=== PATIENT | female | born 1935 | race Asian ===

== ENCOUNTER 2016-10-08 12:37 | Inpatient (IN) | payer MEDICARE, MEDICAID ==
[~2016-10-08] VITALS: Ht 154.9 cm; Wt 45.4 kg
[~2016-10-08 12:37] MED LIST: AMLO1TAB39 PO; ANTACID ANTI GAS PO; CLON0.5T4 PO; DICL100G3 TP; DICY20TA11 PO; DONE10TA44 PO; ESOM40CA PO; GABA-534 PO; GLIP5TAB13 PO; LINA5TAB PO; MEGE400O PO; METF500T4 PO; METO25TA PO; P EP PO; RALO60TA PO; ROSU10TA PO; TOBR3.5O2 OP; TRAM50TA2 PO; TRIA15OI2 TP; VENL75TA4 PO; ZOLP10TA6 PO
[2016-10-08] MEDS ORDERED: LIDOCAINE 1%-EPI 1:100,000 50 ML VIAL IJ ONE (13:00)
[2016-10-08] MEDS ORDERED: IV NS 0.9% 500 ML BAG IV ONE (13:00)
[2016-10-08] MEDS ORDERED: IV SET PRIMARY 1 EA INFUS.SET MC ONE (13:13)
[2016-10-08] MEDS ORDERED: IV NS 0.9% 500 ML IV ONE (13:13)
[2016-10-08] MEDS ORDERED: IV SET PRIMARY PUMP SET 1 EA INFUS.SET MC ONE ×2 (13:43→21:45)
[2016-10-08 13:48] LABS: BASOPHILS # (AUTO) 0.3 /CMM (0.0-0.2); BASOPHILS % (AUTO) 1.5 % (0.0-2.0); DIFF TOTAL % 100 %; EOSINOPHILS # (AUTO) 0.1 /CMM (0.0-0.7); EOSINOPHILS % (AUTO) 0.5 % (0.0-6.0); HEMATOCRIT 30 % (33-45); HEMOGLOBIN 10.4 g/dL (11.5-14.8); LYMPHOCYTES # (AUTO) 1.7 /CMM (0.8-4.8); LYMPHOCYTES % (AUTO) 9.2 % (20.0-44.0); MEAN CORPUSCULAR HEMOGLOBIN 32 PG (26.0-33.0); MEAN CORPUSCULAR HGB CONC 35 g/dl (31.0-36.0); MEAN CORPUSCULAR VOLUME 91 fL (82-100); MONOCYTES # (AUTO) 1.1 /CMM (0.1-1.30); MONOCYTES % (AUTO) 6.1 % (2.0-12.0); NEUTROPHILS # (AUTO) 14.8 /CMM (1.8-8.9); NEUTROPHILS % (AUTO) 82.7 % (43.0-81.0); PLATELET COUNT (AUTO) 538 /CMM (150-450); RED BLOOD CELL COUNT(AUTO) 3.27 MIL/uL (4.0-5.2)
[2016-10-08 14:00] LABS: INR 0.93 (0.87-1.13); PROTHROMBIN TIME 9.8 SECS (9.5-12.7)
[2016-10-08 14:02] LABS: ALANINE AMINOTRANSFERASE 54 U/L (12-78); ALBUMIN 3.3 g/dL (3.4-5.0); ANION GAP 14 (5-14); ASPARTATE AMINOTRANSFERASE 44 U/L (15-37); BILIRUBIN,DIRECT 0.1 mg/dL (0.0-0.2); BILIRUBIN,TOTAL 0.5 mg/dL (0.2-1.0); CALCIUM, SERUM 8.8 mg/dL (8.5-10.1); CARBON DIOXIDE 24 mmol/L (21-32); CHLORIDE 96 mmol/L (98-107); CREATININE 1.2 mg/dL (0.6-1.3); GLUCOSE 234 mg/dL (74-106); INDIRECT BILIRUBIN 0.4 mg/dL (0.0-1.1); POTASSIUM 4.1 mmol/L (3.5-5.1); SODIUM SERUM 130 mmol/L (136-145); TOTAL PROTEIN, SERUM 7.9 g/dL (6.4-8.2); UREA NITROGEN, BLOOD 23 mg/dL (7-18)
[2016-10-08 14:04] LABS: TROPONIN I < 0.017 ng/mL (0.00-0.056)
[2016-10-08 14:40] VITALS: BP 131/75
[2016-10-08] MEDS ORDERED: ONDANSETRON HCL/PF 4 MG/2 ML VIAL IVP PRN (16:30)
[2016-10-08] MEDS ORDERED: ACETAMINOPHEN 325 MG TABLET PO PRN (16:30)
[2016-10-08] MEDS: METFORMIN 500 MG TABLET PO SCH (17:00)
[2016-10-08] MEDS: AZITHROMYCIN 500 MG in IV D5W 250 ML IV SCH (17:00)
[2016-10-08] MEDS: GABAPENTIN 300 MG CAPSULE PO SCH (17:00)
[2016-10-08] MEDS: MEGESTROL ACETATE SUSP 400 MG/10 ML UDC PO SCH (17:00)
[2016-10-08] MEDS ORDERED: CLOTRIMAZOLE 1% 15 GM TUBE TP SCH (17:00)
[2016-10-08] MEDS: TRAMADOL HCL 50 MG TABLET PO SCH (17:00)
[2016-10-08] MEDS ORDERED: QUETIAPINE FUMARATE 25 MG TABLET PO STA (17:28)
[2016-10-08] MEDS: CEFTRIAXONE 1 G in IV D5W 50 ML IV SCH (18:00)
[2016-10-08 20:00] VITALS: BP 107/58
[2016-10-08] MEDS ORDERED: GUAIFENESIN/CODEINE 10 ML UDC PO PRN (21:00)
[2016-10-08] MEDS ORDERED: HYDROCODONE/APAP 5/325MG 1 EACH TABLET PO PRN (21:00)
[2016-10-08] MEDS ORDERED: ZOLPIDEM TARTRATE 10 MG TABLET ONE (21:20)
[2016-10-08] MEDS ORDERED: GUAIFENESIN/CODEINE 10 ML UDC ONE (21:21)
[2016-10-08] MEDS: IV NS 0.9% 1,000 ML IV PRN (21:50)
[2016-10-08] MEDS ORDERED: DONEPEZIL 5 MG TABLET PO SCH (22:00)
[2016-10-08] MEDS ORDERED: ATORVASTATIN 10 MG TABLET PO SCH (22:00)
[2016-10-08] MEDS ORDERED: ZOLPIDEM TARTRATE 10 MG TABLET PO SCH (22:00)
[2016-10-09] VITALS: BP 110/69
[2016-10-09 07:20] LABS: BASOPHILS % (AUTO) 0.2 % (0.0-2.0); DIFF TOTAL % 100 %; EOSINOPHILS # (AUTO) 0.1 /CMM (0.0-0.7); HEMATOCRIT 27 % (33-45); HEMOGLOBIN 9.2 g/dL (11.5-14.8); LYMPHOCYTES # (AUTO) 1.3 /CMM (0.8-4.8); LYMPHOCYTES % (AUTO) 10.6 % (20.0-44.0); MEAN CORPUSCULAR HEMOGLOBIN 32 PG (26.0-33.0); MEAN CORPUSCULAR HGB CONC 34 g/dl (31.0-36.0); MEAN CORPUSCULAR VOLUME 92 fL (82-100); MONOCYTES # (AUTO) 0.9 /CMM (0.1-1.30); MONOCYTES % (AUTO) 7.1 % (2.0-12.0); NEUTROPHILS # (AUTO) 9.7 /CMM (1.8-8.9); NEUTROPHILS % (AUTO) 81.1 % (43.0-81.0); PLATELET COUNT (AUTO) 500 /CMM (150-450); RED BLOOD CELL COUNT(AUTO) 2.92 MIL/uL (4.0-5.2); WHITE BLOOD COUNT (AUTO) 11.9 K/uL (4.3-11.0)
[2016-10-09 07:42] LABS: ALBUMIN 2.9 g/dL (3.4-5.0); BILIRUBIN,TOTAL 0.4 mg/dL (0.2-1.0); CALCIUM, SERUM 8.2 mg/dL (8.5-10.1); CREATININE 1.1 mg/dL (0.6-1.3); PHOSPHORUS 3.1 mg/dL (2.5-4.9); POTASSIUM 3.9 mmol/L (3.5-5.1); TOTAL PROTEIN, SERUM 7.2 g/dL (6.4-8.2)
[2016-10-09 07:48] LABS: THYROID STIMULATING HORMONE 1.263 uIU/mL (0.358-3.74)
[2016-10-09 07:55] VITALS: BP 110/65
[2016-10-09 08:00] VITALS: BP 104/65
[2016-10-09] MEDS ORDERED: RALOXIFENE 60 MG TABLET PO SCH (09:00)
[2016-10-09] MEDS ORDERED: FLUCONAZOLE (100 MG) 100 MG TABLET PO SCH (09:00)
[2016-10-09] MEDS ORDERED: VENLAFAXINE 37.5 MG TABLET PO SCH (09:00)
[2016-10-09] MEDS ORDERED: clonazePAM 0.5 MG TABLET PO SCH (09:00)
[2016-10-09] MEDS ORDERED: TOBRAMYCIN/DEXAMETH OPHTH OINT 3.5 GM TUBE OP SCH (09:00)
[2016-10-09] MEDS ORDERED: SITAGLIPTIN PHOSPHATE 50 MG TABLET PO SCH ×2 (09:00)
[2016-10-09] MEDS ORDERED: VALSARTAN 40 MG TABLET PO SCH (09:00)
[2016-10-09] MEDS ORDERED: AMLODIPINE BESYLATE 5 MG TABLET PO SCH (09:00)
[2016-10-09] MEDS ORDERED: TRIAMCINOLONE OINT 0.1% 15 GM TUBE TP SCH (09:00)
[2016-10-09] MEDS ORDERED: ZOLPIDEM TARTRATE 10 MG TABLET PO SCH (09:00)
[2016-10-09] MEDS ORDERED: glipiZIDE 5 MG TABLET PO SCH (09:00)
[2016-10-09] MEDS ORDERED: METOPROLOL SUCCINATE 25 MG TAB.SR.24H PO SCH (09:00)
[2016-10-09] MEDS: METFORMIN 500 MG TABLET PO SCH ×2 (09:11→17:08)
[2016-10-09] MEDS: MEGESTROL ACETATE SUSP 400 MG/10 ML UDC PO SCH ×2 (09:11→17:08)
[2016-10-09] MEDS: GABAPENTIN 300 MG CAPSULE PO SCH ×3 (09:11→17:08)
[2016-10-09] MEDS: TRAMADOL HCL 50 MG TABLET PO SCH ×2 (09:15→17:00)
[2016-10-09 11:31] VITALS: BP 125/68
[2016-10-09 12:00] VITALS: BP 125/68
[2016-10-09] MEDS ORDERED: SOD FERRIC GLUC 125 MG in IV NS 0.9% 100 ML IV SCH (14:00)
[2016-10-09] MEDS ORDERED: SECONDARY IV SET 1 EA INFUS.SET MC ONE (14:23)
[2016-10-09] MEDS: IV NS 0.9% 1,000 ML IV PRN (14:28)
[2016-10-09 16:00] VITALS: BP_SYST 86; BP_SYST 94; BP_DIAS 44; BP_DIAS 49
[2016-10-09] MEDS: AZITHROMYCIN 500 MG in IV D5W 250 ML IV SCH (17:05)
[2016-10-09] MEDS: CEFTRIAXONE 1 G in IV D5W 50 ML IV SCH (17:48)
== END 2016-10-09 19:45 | disposition left against medical advice (07) | DRG 682 ==
LOC: ER 12:46 → TELE 13:03
PROVIDERS: ADMIT Nurse Practitioner Acute Care; ATTEND Nurse Practitioner Acute Care
DX: N17.0 Acute kidney failure with tubular necrosis (principal); G92 Toxic encephalopathy; E44.0 Moderate protein-calorie malnutrition; E87.1 Hypo-osmolality and hyponatremia; N39.0 Urinary tract infection, site not specified; Z68.1 Body mass index [BMI] 19.9 or less, adult; R55 Syncope and collapse; D47.3 Essential (hemorrhagic) thrombocythemia; D64.9 Anemia, unspecified; E86.0 Dehydration; F03.90 Unspecified dementia, unspecified severity, without behavioral disturbance, psychotic disturbance, mood disturbance, and anxiety; F32.9 Major depressive disorder, single episode, unspecified; I10 Essential (primary) hypertension; J20.9 Acute bronchitis, unspecified; K21.9 Gastro-esophageal reflux disease without esophagitis; M19.90 Unspecified osteoarthritis, unspecified site; M62.50 Muscle wasting and atrophy, not elsewhere classified, unspecified site; S01.01XA Laceration without foreign body of scalp, initial encounter; X58.XXXA Exposure to other specified factors, initial encounter; Y93.9 Activity, unspecified; Y92.009 Unspecified place in unspecified non-institutional (private) residence as the place of occurrence of the external cause; D72.829 Elevated white blood cell count, unspecified; E11.65 Type 2 diabetes mellitus with hyperglycemia; D50.9 Iron deficiency anemia, unspecified; E88.89 Other specified metabolic disorders; I51.7 Cardiomegaly
CPT/HCPCS: 36415; 70450-TC; 71010-TC; 80048-TC; 80053-TC; 80061-TC; 80076-TC; 82962-TC; 83540-TC; 83735-TC; 84100-TC; 84443-TC; 84484-TC; 85025-TC; 85730-TC; 87081-TC; 87400; 93307-TC; A4606; G6040-TC; J0456; J0696; J2405; J2916; J3490; J7030; J7040; J7060; Z7610

== ENCOUNTER 2016-12-17 22:01 | Emergency (ER) | payer MEDICARE, MEDICAID ==
[~2016-12-17] VITALS: Ht 157.5 cm; Wt 59.0 kg
[~2016-12-17 22:01] MED LIST changes: +METO-302 PO; -METO25TA PO
[2016-12-17 22:12] VITALS: BP 113/72
--- NOTE | 2016-12-17 22:15 | NUR ---
To bed 1 an 81 yo female bibra. Per ems patient was complaining of stomach ache and when they tried to help her stand up, patient seen unsteady. SBP laying down was 120 and standing is 97. Patient is aaox2, no s/s of acute distress. Breathing even and unlabored. Patient appears anxious and saying I want to go home, I am not in pain. [employer] speaking staff for translation at bedside with Dr Kong for eval, however patient refused to answer questions at this time. Safety maintained. Will monitor.
--- NOTE | 2016-12-17 22:20 | NUR ---
CALLED DAUGHTER AT [phone], PER DAUGHTER, PT HAS A HX OF DEMENTIA, DAUGHTER LEFT HOUSE WHEN EVENT HAPPENED. PT DAUGHTER WILL BE HERE IN 20 MIN
== END 2016-12-17 22:50 | disposition left against medical advice (07) ==
LOC: ER 22:04
DX: F03.90 Unspecified dementia, unspecified severity, without behavioral disturbance, psychotic disturbance, mood disturbance, and anxiety (principal); K21.9 Gastro-esophageal reflux disease without esophagitis; E11.9 Type 2 diabetes mellitus without complications
CPT/HCPCS: 99283; A4606; Z7610

== ENCOUNTER 2017-07-03 16:17 | Emergency (ER) | payer MEDICARE, MEDICAID ==
[~2017-07-03] VITALS: Ht 165.1 cm; Wt 54.4 kg
--- NOTE | 2017-07-03 16:55 | NUR ---
DR. PRUETT AT BEDSIDE SPEAKING WITH DAUGHTER. DAUGHTER WISHES TO LEAVE AGAINST MEDICAL ADVICE. PT FAMILY SIGNED AMA FORM
[2017-07-03 16:56] LABS: BASOPHILS # (AUTO) 0.1 /CMM (0.0-0.2); EOSINOPHILS # (AUTO) 0.1 /CMM (0.0-0.7); LYMPHOCYTES # (AUTO) 1.5 /CMM (0.8-4.8); MONOCYTES # (AUTO) 0.6 /CMM (0.1-1.30)
--- NOTE | 2017-07-03 16:56 | NUR ---
[facility] AT BEDSIDE TO SPEAK WITH FAMILY AND PATIENT
[2017-07-03 16:58] LABS: BASOPHILS % (AUTO) 1.2 % (0.0-2.0); EOSINOPHILS % (AUTO) 1.8 % (0.0-6.0); HEMATOCRIT 30 % (33-45); HEMOGLOBIN 9.9 g/dL (11.5-14.8); LYMPHOCYTES % (AUTO) 18.5 % (20.0-44.0); MEAN CORPUSCULAR HEMOGLOBIN 34 PG (26.0-33.0); MEAN CORPUSCULAR HGB CONC 34 g/dl (31.0-36.0); MEAN CORPUSCULAR VOLUME 99 fL (82-100); NEUTROPHILS # (AUTO) 5.6 /CMM (1.8-8.9); NEUTROPHILS % (AUTO) 70.5 % (43.0-81.0); PLATELET COUNT (AUTO) 456 /CMM (150-450); RDW COEFFICIENT OF VARIATION 16.1 (11.5-15.0); RED BLOOD CELL COUNT(AUTO) 2.97 MIL/uL (4.0-5.2); WHITE BLOOD COUNT (AUTO) 7.9 K/uL (4.3-11.0)
[2017-07-03 17:04] LABS: CALCIUM, SERUM 8.6 mg/dL (8.5-10.1); CARBON DIOXIDE 19 mmol/L (21-32); CHLORIDE 106 mmol/L (98-107); CREATININE 1.3 mg/dL (0.6-1.3); GLUCOSE 154 mg/dL (74-106); POTASSIUM 4.8 mmol/L (3.5-5.1); SODIUM SERUM 137 mmol/L (136-145); UREA NITROGEN, BLOOD 38 mg/dL (7-18)
--- NOTE | 2017-07-03 17:07 | NUR ---
Patient discharged to home in stable condition. Written and verbal after care instructions given. Patient verbalizes understanding of instruction.
[2017-07-03 17:10] VITALS: BP 112/71
[2017-07-03 17:10] LABS: ALANINE AMINOTRANSFERASE 61 U/L (12-78); ALBUMIN 3.6 g/dL (3.4-5.0); ALKALINE PHOSPHATASE 59 U/L (46-116); ASPARTATE AMINOTRANSFERASE 42 U/L (15-37); BILIRUBIN,TOTAL 0.2 mg/dL (0.2-1.0); TOTAL PROTEIN, SERUM 7.2 g/dL (6.4-8.2)
== END 2017-07-03 17:11 | disposition home or self-care (01) ==
LOC: ER 16:18
DX: F03.90 Unspecified dementia, unspecified severity, without behavioral disturbance, psychotic disturbance, mood disturbance, and anxiety (principal); E11.9 Type 2 diabetes mellitus without complications; F32.9 Major depressive disorder, single episode, unspecified; I10 Essential (primary) hypertension; K21.9 Gastro-esophageal reflux disease without esophagitis; D64.9 Anemia, unspecified
CPT/HCPCS: 36415; 80048; 80076; 85025; 99284; A4606; Z7610

== ENCOUNTER 2019-10-25 14:49 | Emergency (ER) | payer MEDICARE, OTHER ==
[~2019-10-25] VITALS: Ht 139.7 cm; Wt 40.8 kg
[~2019-10-25 14:49] MED LIST changes: +DICL100G16 TP; -DICL100G3 TP; +METF-440 PO; -METF500T4 PO; -METO-302 PO; +METO25TA4 PO; -ROSU10TA PO; +ROSU10TA2 PO
--- NOTE | 2019-10-25 15:03 | NUR ---
Patient alert and oriented, maori speaker. No distress noted. Needs attended.
--- NOTE | 2019-10-25 16:54 | NUR ---
Family at bedside. Patient in no distress, per son patient has chronic pain on her legs and she's treated as outpatient. No distress noted.
--- NOTE | 2019-10-25 17:02 | NUR ---
Patient discharged to home in stable condition. Written and verbal after care instructions given to son and verbalizes understanding of instruction.
[2019-10-25 17:04] VITALS: BP 123/69
== END 2019-10-25 17:05 | disposition home or self-care (01) ==
LOC: ER 14:59
DX: F03.90 Unspecified dementia, unspecified severity, without behavioral disturbance, psychotic disturbance, mood disturbance, and anxiety (principal); M25.551 Pain in right hip; Z79.899 Other long term (current) drug therapy; W01.0XXA Fall on same level from slipping, tripping and stumbling without subsequent striking against object, initial encounter; Y93.89 Activity, other specified; Y92.89 Other specified places as the place of occurrence of the external cause; Y99.8 Other external cause status
CPT/HCPCS: 71045-TC; 73502